=== PATIENT | male | born 1955 | race Caucasian/White ===

== ENCOUNTER → 2024-08-25 | Outpatient (CLI) | payer MEDICARE, OTHER, SELFPAY ==
--- NOTE | 2024-08-25 08:30 | MRI_ITS ---
STUDY: MR PROSTATE GLAND/ PELVIS WITH T WITHOUT CONTRAST REASON FOR EXAM: Male, 68 years old. ELEVATED PSA PROSTATE ENLARGED, INCREASE PSA 5.10, NO BIOPSY, NO OTHER CONCERNS TECHNIQUE: Standardized fat and water weighted pulse sequences were obtained in all 3 orthogonal planes, pre-and post contrast administration. IV 18cc clariscan was administered for the contrast portion of the examination. COMPARISON: None. FINDINGS: Prostate gland volume/size: 4.32 x 5.74 x 3.58 cm. The apex of the prostate gland herniated into the base of the bladder. Anterior fibromuscular stroma: Normal Peripheral zone: Small intermediate to low signal irregular fibrotic material in the inferior medial aspect of the right peripheral zone. Diffuse nodularity throughout the left peripheral zone with a 9.5 cm low signal nodule in the medial aspect of the left zone that demonstrates mild/partial enhancement on the postcontrast study (see image series 8 and series 10). No focal diffusion weighted signal abnormality is present to indicate a neoplasm.. Central zone: Diffusely heterogeneous and nodular and cystic consistent with BPH with mild diffuse post contrast enhancement. Transitional zone: Diffusely heterogeneous and nodular and cystic consistent with BPH with mild diffuse post contrast enhancement. Prostate capsule: Intact. Seminal vesicles: Normal bilaterally. Pelvic sidewall lymphadenopathy: No pelvic lymphadenopathy is present. Bony structures: No marrow edema or lytic or blastic lesion or enhancing lesions are present. A small benign intraosseous cyst is present at the head neck junction of the left hip. Mildly thickened trabeculated bladder wall likely due to some degree of bladder outlet obstruction from the prostate gland herniated into the trigone. Normal visualized small intestine. Normal visualized colon. There is no pelvic fluid. There is no pelvic mass lesion or lymphadenopathy. Normal abdominal wall. MRI/Pelvis W/WO Contrast IMPRESSION: 1. Diffusely heterogeneous and nodular and cystic consistent with BPH with mild diffuse post contrast enhancement. 2. PI-RADS 2: low (clinically significant cancer is unlikely to be present) 3. Targeted image guided biopsy of nodules or area of interest can be performed for definitive pathologic assessment of the tissue and diagnosis 4. Prostate PET/CT exam can also be performed to determine if there is viable malignant neoplasm in the prostate gland. Prostate MRI reference: 15-30% of prostate cancers can go undetected on Prostate MRI. Monitoring and assessment by Primary physician, Urology, and oncology service recommended and treated clnically. (Cancers ([place]). 2022Sep 11;15(08):1760. doi: [id number] Prostate Cancers Invisible on Multiparametric MRI: Pathologic Features in Correlation with Whole-Mount Prostatectomy Samuel Del Angel 1,2,*, Pradip Mcneil 3, Reji Rosado 1,2, Anna Garay 1,2, Karine Tracey 4, Bassam Martin 5, Gustabo Delgado 6, Claudio Monson 1,2, Corey Lomax 1,2) Reference information: Normal prostate tissue Benign prostatic hypertrophy cancer/tumor - low signal peripheral , transitional, and central zones malignancy appears as bright on DWI and low signal on ADC map Prostate imaging-reporting and data system (PI-RADS) PI-RADS 1: very low (clinically significant cancer is highly unlikely to be present) PI-RADS 2: low (clinically significant cancer is unlikely to be present) PI-RADS 3: intermediate (the presence of clinically significant cancer is equivocal) PI-RADS 4: high (clinically significant cancer is likely to be present) PI-RADS 5: very high (clinically significant cancer is highly likely to be present) PI-RADS X: component of exam technically inadequate or not performed Prostate malignancy distribution: Peripheral zone: 70-80% Transitional zone: 10-20% Central zone: 5% or less Electronically Signed: Luis Moseely MD at 9:07 EST ,
[2024-08-25 08:39] LABS: CREATININE FINGERSTICK < 1.0 mg/dL (0.70-1.30); EGFR FINGERSTICK > 60.0000 mL/min (>60)
== END | disposition home or self-care (01) ==
LOC: MRI 07:59
PROVIDERS: PCP Family Medicine; Referring Provider Family Medicine; Visit Provider Nurse Practitioner
DX: R97.20 Elevated prostate specific antigen [PSA] (principal)
CPT/HCPCS: 72197; A9575